=== PATIENT | male | born 1975 | race Caucasian/White ===

== ENCOUNTER 2021-06-07 01:36 | Observation (INO) | payer OTHER, MEDICAID, SELFPAY ==
[2021-06-07] VITALS (12 sets, daily range): BP systolic 97–138; BP diastolic 61–87; PULSE 50–77; RESP 7–22; TEMP 36.1–36.6; O2SAT 95–100; BMI 25.0
--- NOTE | 2021-06-07 01:46 | DI.RAD.S_ITS ---
PROCEDURE: XR CHEST 1V INDICATIONS: chest pain TECHNIQUE: One view of the chest was acquired. COMPARISON: None. FINDINGS: Surgical changes and devices: None. Lungs and pleura: Lungs are clear. No pleural effusions or pneumothorax. Mediastinum: Mediastinal contours appear normal. Heart size is normal. Bones and chest wall: No suspicious bony lesions. Overlying soft tissues appear unremarkable. IMPRESSION: No acute cardiopulmonary disease process. Dictated by: Amie Anderson MD, PhD on 06/07/2021 at 9:02 Approved by: Amie Anderson MD, PhD on 06/07/2021 at 9:02
[2021-06-07 02:06] LABS: Add Manual Diff / Slide Review NO; Basophils Absolute Auto 100 /uL (0-100); Basophils Percent Auto 0.8 % (0-2); Eosinophils Absolute Auto 300 /uL (0-450); Eosinophils Percent Auto 3.8 % (2-4); Hematocrit 44.9 % (41-53); Hemoglobin 14.9 g/dL (13.5-17.5); Lymphocytes Absolute Auto 2500 /uL (1100-4500); Lymphocytes Percent Auto 36.1 % (25-40); Mean Corpuscular HGB Conc 33.2 % (30-36); Mean Corpuscular Hemoglobin 28.9 PG (26-34); Mean Corpuscular Volume 86.8 fL (80-100); Monocytes Absolute Auto 500 /uL (0-900); Monocytes Percent Auto 6.7 % (3-14); Neutrophils Absolute Auto 3700 /uL (1500-7000); Neutrophils Percent Auto 52.6 % (50-75); Platelet Count 179 X10^3/uL (150-400); Red Blood Cell Count 5.17 X10^6/uL (4.5-5.9); Red Cell Distribution Width 13.7 % (11.6-14.8)
[2021-06-07 02:11] LABS: Alanine Aminotransferase 19 IU/L (<50); Albumin 4.4 g/dL (3.5-5.0); Albumin Globulin Ratio 1.5 (1.0-2.8); Alkaline Phosphatase 60 U/L (38-126); Aspartate Aminotransferase 29 IU/L (17-59); BUN Creatinine Ratio 14.3 (6-22); Bilirubin Total 0.4 mg/dL (0.2-1.3); Blood Urea Nitrogen 11 mg/dL (9-20); Calcium 9.5 mg/dL (8.4-10.2); Carbon Dioxide 23 mmol/L (22-32); Chloride 108 mmol/L (98-107); Creatine Kinase 148 U/L (55-170); Estimated Glomerular Filt Rate > 60.0 mL/min (>60); Glucose 132 mg/dL (70-100); HEMOLYSIS 20 (0-50); Lipase 270 U/L (23-300); Potassium 3.6 mmol/L (3.4-5.1); Sodium 141 mmol/L (137-145); Total Protein 7.4 g/dL (6.3-8.2)
--- NOTE | 2021-06-07 02:11 | ED_ITS ---
HPI - Chest Pain <Kannan Harris DO - Last Filed: 06/09/21 07:20> General Chief Complaint: Chest Pain Stated Complaint: Lt arm tingling, chest tight, heart fluttering, SO Time Seen by Provider: 06/07/21 01:40 Source: patient Mode of arrival: Ambulatory Limitations: no limitations History of Present Illness HPI narrative: 45-year-old male former smoker with history of drug abuse presents with a chief complaint of some squeezing chest pressure that started while he was cleaning his house tonight, about 2 hours ago. He states that it seems to be made worse by walking around and improves with rest. He states it is squeezing in nature and radiates into his left arm. He denies dizziness, weakness or light headedness. He denies nausea, vomiting or diarrhea. He denies recent travel but has a remote history of a left basilic DVT Related Data Home Medications Medication Instructions Recorded Confirmed buspirone 30 mg tablet 30 mg PO BID 06/07/21 06/07/21 meloxicam 15 mg tablet 15 mg PO DAILY 06/07/21 06/07/21 oxcarbazepine 300 mg tablet 300 mg PO BID 06/07/21 06/07/21 propranolol 20 mg tablet 40 mg BID 06/07/21 06/07/21 quetiapine 200 mg tablet 200 mg PO BEDTIME 06/07/21 06/07/21 Previous Rx's Medication Instructions Recorded aspirin 81 mg tablet,delayed 81 mg PO DAILY #30 tab 06/07/21 release atorvastatin 20 mg tablet (Lipitor) 40 mg PO BEDTIME #30 tab 06/07/21 nicotine (polacrilex) 4 mg gum 4 mg PO Q2H PRN #90 ea 06/07/21 Allergies Allergy/AdvReac Type Severity Reaction Status Date / Time benztropine [From Cogentin] Allergy Verified 06/07/21 02:47 Review of Systems <DO Simin Geronimo Last Filed: 06/09/21 07:20> Review of Systems Narrative: GENERAL: Denies chills, fatigue, malaise, fever, sweats. HEENT: Denies sinus pain, ear pain, sore throat, difficulty swallowing, dizziness. RESPIRATORY: Denies dyspnea, cough, wheezing, hemoptysis, sputum. CARDIOVASCULAR: See HPI GASTROINTESTINAL: Denies nausea, vomiting, abdominal pain, diarrhea, constipation, melena. : Denies dysuria, frequency, incontinence, hematuria, urinary retention. MUSCULOSKELETAL: denies weakness, joint pain, or bony pain SKIN: Denies rash, skin lesions, or other NEUROLOGIC: Denies weakness, headache, numbness, change in speech, confusion, seizures, incoordination. PSYCHIATRIC: No concerning psychosocial issues. 12 point review of systems is negative except for those stated above Patient History <Kannan Harris DO - Last Filed: 06/09/21 07:20> Social History household members: spouse Smoking Status: Current every day smoker alcohol intake: current Smoking Status: Current every day smoker alcohol intake frequency: 0-2 drinks per day Substance Use Type: does not use Exam <Kannan Harris DO - Last Filed: 06/09/21 07:20> Narrative Exam Narrative: GENERAL: [45] year old patient appears stated age. Well- developed patient, in mild distress. HEAD: Atraumatic. Normocephalic. EYES: Pupils equal round and reactive. Extraocular motions intact. No scleral icterus. No injection or drainage. ENT: Nose without bleeding, purulent drainage. Throat without erythema, ton sillar hypertrophy or exudate. Airway patent. NECK: Trachea midline. Non tender CARDIOVASCULAR: Regular rate and rhythm without murmurs, gallops, or rubs. RESPIRATORY: Clear to auscultation. Breath sounds equal bilaterally. No wheezes, rales, or rhonchi. GASTROINTESTINAL: Abdomen soft, non-tender, nondistended. EXTREMITIES: No edema or joint tenderness. BACK: Nontender without deformity or crepitance. No flank tenderness. NEURO: AOx3. SKIN: No rash or erythema of visible areas Initial Vital Signs Initial Vital Signs: Vital Signs Temperature 97.5 F L 06/07/21 01:46 Pulse Rate 77 06/07/21 01:46 Respiratory Rate 22 06/07/21 01:46 Blood Pressure 125/87 06/07/21 01:46 Pulse Oximetry 98 06/07/21 01:46 <Nedra Aguillon DO - Last Filed: 06/07/21 08:57> Initial Vital Signs Initial Vital Signs: Vital Signs Temperature 97.5 F L 06/07/21 01:46 Pulse Rate 77 06/07/21 01:46 Respiratory Rate 22 06/07/21 01:46 Blood Pressure 125/87 06/07/21 01:46 Pulse Oximetry 98 06/07/21 01:46 Course <Kannan Harris DO - Last Filed: 06/09/21 07:20> Orders Ordered: Discontinued Medications Acetaminophen (Acetaminophen 325 Mg Tablet) 650 mg PO Q6HR PRN PRN Reason: Fever/Mild Pain (1-3) Last Admin: 06/07/21 14:11 Dose: 650 mg Documented by: RAMON Aspirin (Aspirin 81 Mg Chew Tab) 324 mg PO NOW ONE Stop: 06/07/21 01:47 Last Admin: 06/07/21 02:22 Dose: 324 mg Documented by: SHERLYN Aspirin (Aspirin Ec 81 Mg Tablet) 81 mg PO DAILY [facility] Last Admin: 06/07/21 09:39 Dose: 81 mg Documented by: YVONNE Atorvastatin Calcium (Atorvastatin 20 Mg Tablet) 40 mg PO BEDTIME [facility] Enoxaparin Sodium (Enoxaparin 40 Mg/0.4 Ml Syringe) 40 mg SUBCUT DAILY [facility] Last Admin: 06/07/21 09:39 Dose: 40 mg Documented by: YVONNE Sodium Chloride (Normal Saline 0.9%) 1,000 mls @ 150 mls/hr IV CONT [facility] Last Infusion: 06/07/21 05:37 Dose: 0 mls/hr Documented by: Admin: 06/07/21 02:23 Dose: 150 mls/hr Documented by: SHERLYN Naloxone HCl (Naloxone 0.4 Mg/Ml Vial) 0.2 mg IV Q2MIN PRN PRN Reason: Opiate Reversal Nitroglycerin (Nitroglycerin 0.4 Mg Sl Tab) 0.4 mg SL [id number] PRN PRN Reason: Chest Pain Last Admin: 06/07/21 02:23 Dose: 0.4 mg Documented by: ABGOSIA Nitroglycerin (Nitroglycerin 0.4 Mg Sl Tab) 0.4 mg SL [id number] PRN PRN Reason: Chest Pain Ondansetron HCl (Ondansetron 4 Mg/2 Ml Inj) 4 mg IV Q8HR PRN PRN Reason: Nausea And Vomiting Last Admin: 06/07/21 13:51 Dose: 4 mg Documented by: SHAMIKA Sumatriptan Succinate (Sumatriptan 25 Mg Tablet) 100 mg PO Q2H PRN PRN Reason: Headache Last Admin: 06/07/21 15:42 Dose: 100 mg Documented by: LIZ Reevaluation(s) Reevaluation #1: patient feeling much better after 1st NG Vital Signs Vital signs: Vital Signs - 8 hr 06/07/21 01:46 06/07/21 02:23 06/07/21 02:30 Temperature 97.5 F L Pulse Rate 77 68 72 Respiratory Rate 22 16 16 Blood Pressure 125/87 110/77 97/61 Pulse Oximetry 98 06/07/21 02:33 06/07/21 02:35 06/07/21 04:03 Temperature Pulse Rate 68 69 66 Respiratory Rate 20 13 Blood Pressure 106/66 Pulse Oximetry 96 96 100 06/07/21 04:04 06/07/21 04:15 Temperature Pulse Rate 59 L 54 L Respiratory Rate 7 L 16 Blood Pressure 107/73 97/70 Pulse Oximetry 100 98 <Nedra Aguillon, - Last Filed: 06/07/21 08:57> Orders Ordered: Discontinued Medications Acetaminophen (Acetaminophen 325 Mg Tablet) 650 mg PO Q6HR PRN PRN Reason: Fever/Mild Pain (1-3) Last Admin: 06/07/21 14:11 Dose: 650 mg Documented by: RAMON Aspirin (Aspirin 81 Mg Chew Tab) 324 mg PO NOW ONE Stop: 06/07/21 01:47 Last Admin: 06/07/21 02:22 Dose: 324 mg Documented by: SHERLYN Aspirin (Aspirin Ec 81 Mg Tablet) 81 mg PO DAILY [facility] Last Admin: 06/07/21 09:39 Dose: 81 mg Documented by: YVONNE Atorvastatin Calcium (Atorvastatin 20 Mg Tablet) 40 mg PO BEDTIME [facility] Enoxaparin Sodium (Enoxaparin 40 Mg/0.4 Ml Syringe) 40 mg SUBCUT DAILY [facility] Last Admin: 06/07/21 09:39 Dose: 40 mg Documented by: YVONNE Sodium Chloride (Normal Saline 0.9%) 1,000 mls @ 150 mls/hr IV CONT [facility] Last Infusion: 06/07/21 05:37 Dose: 0 mls/hr Documented by: Admin: 06/07/21 02:23 Dose: 150 mls/hr Documented by: [email or web address] Naloxone HCl (Naloxone 0.4 Mg/Ml Vial) 0.2 mg IV Q2MIN PRN PRN Reason: Opiate Reversal Nitroglycerin (Nitroglycerin 0.4 Mg Sl Tab) 0.4 mg SL [id number] PRN PRN Reason: Chest Pain Last Admin: 06/07/21 02:23 Dose: 0.4 mg Documented by: CTR.[email or web address] Nitroglycerin (Nitroglycerin 0.4 Mg Sl Tab) 0.4 mg SL [id number] PRN PRN Reason: Chest Pain Ondansetron HCl (Ondansetron 4 Mg/2 Ml Inj) 4 mg IV Q8HR PRN PRN Reason: Nausea And Vomiting Last Admin: 06/07/21 13:51 Dose: 4 mg Documented by: SHAMIKA Sumatriptan Succinate (Sumatriptan 25 Mg Tablet) 100 mg PO Q2H PRN PRN Reason: Headache Last Admin: 06/07/21 15:42 Dose: 100 mg Documented by: LIZ Reevaluation(s) Reevaluation #2: This is a 45-year-old male who was signed out to myself by Dr. Harris for exertional chest pain with radiation to the left arm patient also felt nausea and shortness of breath. Patient was seen and evaluated independently by myself. Patient is currently asymptomatic. His risk factors include tobacco abuse and history of IV drug abuse in patient states he has been clean without any use for about a year. He does not have any other known sign ificant risk factors such as hypertension, diabetes or dyslipidemia according the patient and family history includes grandfather on the maternal side who of CHF but no other known cardiac risk factors. Patient EKG was reviewed. Troponin 1 and 2 are negative. The patient's symptoms do seem appropriate to warrant observation and stress testing and patient is still agreeable. Time: 07:28 Consultations Consultation #1: Dr. Armando, for hospitalist service accepts. Vital Signs Vital signs: Vital Signs - 8 hr 06/07/21 01:46 06/07/21 02:23 06/07/21 02:30 Temperature 97.5 F L Pulse Rate 77 68 72 Respiratory Rate 22 16 16 Blood Pressure 125/87 110/77 97/61 Pulse Oximetry 98 06/07/21 02:33 06/07/21 02:35 06/07/21 04:03 Temperature Pulse Rate 68 69 66 Respiratory Rate 20 13 Blood Pressure 106/66 Pulse Oximetry 96 96 100 06/07/21 04:04 06/07/21 04:15 Temperature Pulse Rate 59 L 54 L Respiratory Rate 7 L 16 Blood Pressure 107/73 97/70 Pulse Oximetry 100 98 MDM - Chest Pain <Kannan Harris DO - Last Filed: 06/09/21 07:20> Lab Data Result diagrams: 06/07/21 01:50 06/07/21 01:50 Labs: Lab Results 06/07/21 06/07/21 06/07/21 Range/Units 01:50 01:50 01:50 WBC 7.0 (4.5-11.0) X10^3/uL RBC 5.17 (4.5-5.9) X10^6/uL Hgb 14.9 (13.5-17.5) g/dL Hct 44.9 (41-53) % MCV 86.8 (80-100) fL MCH 28.9 (26-34) PG MCHC 33.2 (30-36) % RDW 13.7 (11.6-14.8) % Plt Count 179 (150-400) X10^3/uL Neut % (Auto) 52.6 (50-75) % Lymph % (Auto) 36.1 (25-40) % [place] % (Auto) 6.7 (3-14) % Eos % (Auto) 3.8 (2-4) % Baso % (Auto) 0.8 (0-2) % Neut # (Auto) 3700 (9311-4241) /uL Lymph # (Auto) 2500 (5748-6696) /uL [place] # (Auto) 500 (0-900) /uL Eos # (Auto) 300 (0-450) /uL Baso # (Auto) 100 (0-100) /uL D-Dimer 1050 H (<230) ng/mL Sodium 141 (137-145) mmol/L Potassium 3.6 (3.4-5.1) mmol/L Chloride 108 H (98-107) mmol/L Carbon Dioxide 23 (22-32) mmol/L BUN 11 (9-20) mg/dL Creatinine 0.77 (0.66-1.25) mg/dL Estimated GFR > 60.0 (>60) mL/min BUN/Creatinine Ratio 14.3 (6-22) Glucose 132 H (70-100) mg/dL Calcium 9.5 (8.4-10.2) mg/dL Total Bilirubin 0.4 (0.2-1.3) mg/dL AST 29 (17-59) IU/L ALT 19 (<50) IU/L Alkaline Phosphatase 60 (38-126) U/L Total Creatine Kinase 148 (55-170) U/L CK-MB (CK-2) 0.61 (<2.37) ng/mL CK-MB (CK-2) Rel Index 0.4 L (1.5-5.0) % Troponin I < 0.012 (0.01-0.034) ng/mL NT-Pro-B Natriuret Pep 54 (<125) pg/mL Total Protein 7.4 (6.3-8.2) g/dL Albumin 4.4 (3.5-5.0) g/dL Globulin 3.0 (1.7-4.1) g/dL Albumin/Globulin Ratio 1.5 (1.0-2.8) Lipase 270 (23-300) U/L SARS-CoV-2 (PCR) (Negative) 06/07/21 06/07/21 Range/Units 02:30 06:45 WBC (4.5-11.0) X10^3/uL RBC (4.5-5.9) X10^6/uL Hgb (13.5-17.5) g/dL Hct (41-53) % MCV (80-100) fL MCH (26-34) PG MCHC (30-36) % RDW (11.6-14.8) % Plt Count (150-400) X10^3/uL Neut % (Auto) (50-75) % Lymph % (Auto) (25-40) % [place] % (Auto) (3-14) % Eos % (Auto) (2-4) % Baso % (Auto) (0-2) % Neut # (Auto) (1369-7758) /uL Lymph # (Auto) (7877-1725) /uL [place] # (Auto) (0-900) /uL Eos # (Auto) (0-450) /uL Baso # (Auto) (0-100) /uL D-Dimer (<230) ng/mL Sodium (137-145) mmol/L Potassium (3.4-5.1) mmol/L Chloride (98-107) mmol/L Carbon Dioxide (22-32) mmol/L BUN (9-20) mg/dL Creatinine (0.66-1.25) mg/dL Estimated GFR (>60) mL/min BUN/Creatinine Ratio (6-22) Glucose (70-100) mg/dL Calcium (8.4-10.2) mg/dL Total Bilirubin (0.2-1.3) mg/dL AST (17-59) IU/L ALT (<50) IU/L Alkaline Phosphatase (38-126) U/L Total Creatine Kinase (55-170) U/L CK-MB (CK-2) (<2.37) ng/mL CK-MB (CK-2) Rel Index (1.5-5.0) % Troponin I < 0.012 (0.01-0.034) ng/mL NT-Pro-B Natriuret Pep (<125) pg/mL Total Protein (6.3-8.2) g/dL Albumin (3.5-5.0) g/dL Globulin (1.7-4.1) g/dL Albumin/Globulin Ratio (1.0-2.8) Lipase (23-300) U/L SARS-CoV-2 (PCR) Negative (Negative) Imaging Data CT scan - chest: Radiologist's Impression: No PE <Nedra Aguillon, - Last Filed: 06/07/21 08:57> Lab Data Labs: Lab Results 06/07/21 06/07/21 06/07/21 Range/Units 01:50 01:50 01:50 WBC 7.0 (4.5-11.0) X10^3/uL RBC 5.17 (4.5-5.9) X10^6/uL Hgb 14.9 (13.5-17.5) g/dL Hct 44.9 (41-53) % MCV 86.8 (80-100) fL MCH 28.9 (26-34) PG MCHC 33.2 (30-36) % RDW 13.7 (11.6-14.8) % Plt Count 179 (150-400) X10^3/uL Neut % (Auto) 52.6 (50-75) % Lymph % (Auto) 36.1 (25-40) % [place] % (Auto) 6.7 (3-14) % Eos % (Auto) 3.8 (2-4) % Baso % (Auto) 0.8 (0-2) % Neut # (Auto) 3700 (2681-7085) /uL Lymph # (Auto) 2500 (7005-7768) /uL [place] # (Auto) 500 (0-900) /uL Eos # (Auto) 300 (0-450) /uL Baso # (Auto) 100 (0-100) /uL D-Dimer 1050 H (<230) ng/mL Sodium 141 (137-145) mmol/L Potassium 3.6 (3.4-5.1) mmol/L Chloride 108 H (98-107) mmol/L Carbon Dioxide 23 (22-32) mmol/L BUN 11 (9-20) mg/dL Creatinine 0.77 (0.66-1.25) mg/dL Estimated GFR > 60.0 (>60) mL/min BUN/Creatinine Ratio 14.3 (6-22) Glucose 132 H (70-100) mg/dL Calcium 9.5 (8.4-10.2) mg/dL Total Bilirubin 0.4 (0.2-1.3) mg/dL AST 29 (17-59) IU/L ALT 19 (<50) IU/L Alkaline Phosphatase 60 (38-126) U/L Total Creatine Kinase 148 (55-170) U/L CK-MB (CK-2) 0.61 (<2.37) ng/mL CK-MB (CK-2) Rel Index 0.4 L (1.5-5.0) % Troponin I < 0.012 (0.01-0.034) ng/mL NT-Pro-B Natriuret Pep 54 (<125) pg/mL Total Protein 7.4 (6.3-8.2) g/dL Albumin 4.4 (3.5-5.0) g/dL Globulin 3.0 (1.7-4.1) g/dL Albumin/Globulin Ratio 1.5 (1.0-2.8) Lipase 270 (23-300) U/L SARS-CoV-2 (PCR) (Negative) 06/07/21 06/07/21 Range/Units 02:30 06:45 WBC (4.5-11.0) X10^3/uL RBC (4.5-5.9) X10^6/uL Hgb (13.5-17.5) g/dL Hct (41-53) % MCV (80-100) fL MCH (26-34) PG MCHC (30-36) % RDW (11.6-14.8) % Plt Count (150-400) X10^3/uL Neut % (Auto) (50-75) % Lymph % (Auto) (25-40) % [place] % (Auto) (3-14) % Eos % (Auto) (2-4) % Baso % (Auto) (0-2) % Neut # (Auto) (6222-8864) /uL Lymph # (Auto) (6289-4507) /uL [place] # (Auto) (0-900) /uL Eos # (Auto) (0-450) /uL Baso # (Auto) (0-100) /uL D-Dimer (<230) ng/mL Sodium (137-145) mmol/L Potassium (3.4-5.1) mmol/L Chloride (98-107) mmol/L Carbon Dioxide (22-32) mmol/L BUN (9-20) mg/dL Creatinine (0.66-1.25) mg/dL Estimated GFR (>60) mL/min BUN/Creatinine Ratio (6-22) Glucose (70-100) mg/dL Calcium (8.4-10.2) mg/dL Total Bilirubin (0.2-1.3) mg/dL AST (17-59) IU/L ALT (<50) IU/L Alkaline Phosphatase (38-126) U/L Total Creatine Kinase (55-170) U/L CK-MB (CK-2) (<2.37) ng/mL CK-MB (CK-2) Rel Index (1.5-5.0) % Troponin I < 0.012 (0.01-0.034) ng/mL NT-Pro-B Natriuret Pep (<125) pg/mL Total Protein (6.3-8.2) g/dL Albumin (3.5-5.0) g/dL Globulin (1.7-4.1) g/dL Albumin/Globulin Ratio (1.0-2.8) Lipase (23-300) U/L SARS-CoV-2 (PCR) Negative (Negative) ECG Data Attestation: I personally reviewed and interpreted this ECG as follows: Prior ECG tracings: available for review Interpretation: NSR, no st changes appreciated. Discharge Plan Departure Patient Disposition: Admitted as Observation Clinical Impression: Chest pain Admit Date/Time: 06/07/21 07:32 Admit Provider: Matt Phillips
[2021-06-07 02:12] LABS: D Dimer 1050 ng/mL (<230)
[2021-06-07] MEDS: ASPIRIN 81 MG CHEW TAB 324 MG PO (02:22)
[2021-06-07 02:23] LABS: NT-proBNP (BNP-Adult 18+) 54 pg/mL (<125); Troponin I < 0.012 ng/mL (0.01-0.034)
[2021-06-07] MEDS: NITROGLYCERIN 0.4 MG SL TAB SL (02:23)
[2021-06-07] MEDS: SODIUM CHLORIDE 0.9% 1,000 ML 150 ML IV (02:23)
[2021-06-07 02:26] LABS: CKMB % Relative Index 0.4 % (1.5-5.0); Creatine Kinase MB 0.61 ng/mL (<2.37)
--- NOTE | 2021-06-07 02:39 | PC.NURSE ---
Pt sts he feels better I can breathe now after 1 nitro.
--- NOTE | 2021-06-07 02:44 | DI.CT.S_ITS ---
PROCEDURE: CT ANGIO CHEST PE PROTOCOL INDICATIONS: chest pain, critical D-Dimer TECHNIQUE: After the administration of intravenous contrast, 2 mm thick sections acquired from the pulmonary apices to the posterior costophrenic angles. 3-dimensional maximum intensity projection (MIP) coronal and sagittal reformats were then acquired through the thorax. For radiation dose reduction, the following was used: automated exposure control, adjustment of mA and/or kV according to patient size. COMPARISON: None. FINDINGS: Image quality: Excellent. Pulmonary arteries: Pulmonary arteries are normal in size, and demonstrate no intraluminal filling defects to suggest central pulmonary embolism. Lungs and pleura: Lungs are clear. Small 2-3 millimeter calcified granuloma is noted in the right middle lobe, left lower lobe and left upper lobe. No pleural effusions or pneumothorax. Central and peripheral airways are patent. Mediastinum: Heart size is normal, without pericardial effusion. No mediastinal or hilar adenopathy. Thoracic aorta is normal in caliber and enhancement. Esophagus is normal in caliber, without hiatal hernia. Bones and chest wall: No suspicious bony lesions. Ribs and thoracic spine appear intact throughout. Thyroid gland contains an 8 millimeter hypoattenuating nodule in the right lobe. No axillary or supraclavicular adenopathy. Abdomen: Visualized upper abdominal solid organs appear normal in the early arterial phase of enhancement. IMPRESSION: 1. No pulmonary embolus. 2. No lung consolidation or pleural effusions. 3. Small 2-3 millimeter bilateral lung calcified granulomas. Dictated by: Amie Anderson MD, PhD on 06/07/2021 at 7:04 Approved by: Amie Anderson MD, PhD on 06/07/2021 at 7:08
[2021-06-07 03:25] LABS: COVID19 - ADMIT (NP swab/PCR) Negative (Negative)
[2021-06-07 07:14] LABS: Troponin I < 0.012 ng/mL (0.01-0.034)
--- NOTE | 2021-06-07 07:26 | PC.NURSE ---
Report called to Remy JACKSON
--- NOTE | 2021-06-07 07:42 | DI.NM.S_ITS ---
PROCEDURE: NM EDDIE PERF SPECT R&S PHARM Rest and pharmacological stress myocardial perfusion SPECT with gated imaging and ejection fraction RADIOPHARMACEUTICAL: 11.3 mCi Tc-99m tetrafosmin IV at rest and 25.9 mCi Tc-99m tetrafosmin IV at peak effect of pharmacological stress. [id number] was performed. INDICATIONS: chest pain TECHNIQUE: Radiopharmaceutical was injected at peak stress test, and also at rest. SPECT images were obtained. SPECT myocardial perfusion images were displayed in short axis, horizontal long axis, and vertical long axis views. Gated images were reviewed using POKKT software. COMPARISON: None. CARDIAC STRESS: A pharmacologic stress test was performed under the supervision of an attending staff, using an infusion of lexiscan 0.4mg IV X1. Hemodynamic data: There is normal blood pressure and heart rate response to pharmacologic stress. Symptoms: The patient had non-diagnostic chest pain throughout the study that worsened mildly with lexiscan. Aminophylline: none EKG: No diagnostic changes of ischemia; no ectopy. FINDINGS: Raw data: There is good myocardial uptake of radiotracer. No significant motion artifacts. [id number] ratio is 0.24 (normal is less than 0.38 for tetrafosmin tracer). Left ventricle function: Gated images demonstrate normal left ventricular wall thickening. No segmental wall motion abnormalities. No transient ischemic dilation; TID is 1.23 (normal less than 1.3). Left ventricle resting end diastolic volume is 110 mL. Left ventricle stress ejection fraction is 62%; normal range is above 45%. Myocardial perfusion: There is a very mildly intense fixed inferior wall defect that doesn't improve with prone imaging, suggesting probable old non-transmural infarction. No ischemia. SSS 1. IMPRESSION: Abnormal nuclear stress test consistent with small inferior infarction. No ischemia. 1) There is a very mildly intense fixed inferior wall defect that doesn't improve with prone imaging, suggesting probable old non-transmural infarction. No ischemia. SSS 1. 2) Normal left ventricular size, wall motion, and systolic function (EF post stress 62%). 3) No ECG evidence of ischemia. 4) Non-diagnostic chest pain throughout the study that worsened mildly with lexiscan. 5) No prior nuclear stress test available for comparison. Dictated by: Janna Adhikari MD on 06/07/2021 at 16:33 Approved by: Janna Adhikari MD on 06/07/2021 at 16:37
[2021-06-07] MEDS: ENOXAPARIN 40 MG/0.4 ML SYRINGE SUBCUT (09:39)
[2021-06-07] MEDS: ASPIRIN EC 81 MG TABLET PO (09:39)
[2021-06-07] MEDS: ONDANSETRON 4 MG/2 ML INJ IV (13:51)
[2021-06-07] MEDS: ACETAMINOPHEN 325 MG TABLET 650 MG PO (14:11)
[2021-06-07 14:59] LABS: Troponin I < 0.012 ng/mL (0.01-0.034)
--- NOTE | 2021-06-07 15:25 | PC.NURSE ---
A&Ox4, VSS. Patient complained of headache this afternoon and was given PRN tylenol. Chest pain is consistent but described as improving slightly and more of an ache that goes up to his shoulder then a sharp pain. Call light within reach, bed low.
[2021-06-07] MEDS: SUMAtriptan 25 MG TABLET 100 MG PO (15:42)
--- NOTE | 2021-06-07 17:57 | PC.NURSE ---
Discharge Note Patient A&O, VSS, RA, no complaints of pain or discomfort. Discharge packet reviewed with patient, all questions/concerns addressed. 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 Tele/PIV discontinued. All belongings packed and given to patient. Patient walked down to [facility] by this RN.
--- NOTE | 2021-06-07 20:22 | PM.HP.1 ---
History of Present Illness History of Present Illness Chief complaint: Lt arm tingling, chest tight, heart fluttering, SO Narrative: Mr. Simons is a 45M active smoker >1 pack a day, former drug abuse, PTSD, schizoaffective disorder who presents with chest pain. He notes he has had a lot of stress recently due to some legal/family troubles. He was cleaning his house and noted chest pressure. This was squeezing pressure that radiated to his left arm. He had mild shortness of breath. He has a chronic cough, not worsened. No fevers/chills. He has a stress test years ago. Because of these symptoms he came to the hospital. In the ED, vitals were unremarkable. Labs notable for WBC of 7.0, hgb 14.9, creatinine 0.77. Troponin negative x2. COVID negative. d-dimer 1050. EKG showed no ischemic changes. CTA was done and howed no PE. He was admitted for further treatment, he was given aspirin. Family history: grandfather with CHF Patient History Family & Social History Social History: household members spouse Prior Living Arrangements House Safety & Behavioral: Feels Safe in Current Yes Environment Suicidal Ideation Description None Suicide Plan Description No Plan Tobacco & Substance use: Tobacco type cigarettes,cigars Smoking Status Current every day smoker Smoking packs per day 1 alcohol intake current alcohol intake frequency 0-2 drinks per day Substance Use Type does not use Meds Home Medications and Allergies Home Medications Medication Instructions Recorded Confirmed Type aspirin 81 mg tablet,delayed 81 mg PO DAILY #30 tab 06/07/21 Rx release atorvastatin 20 mg tablet (Lipitor) 40 mg PO BEDTIME #30 tab 06/07/21 Rx buspirone 30 mg tablet 30 mg PO BID 06/07/21 06/07/21 History meloxicam 15 mg tablet 15 mg PO DAILY 06/07/21 06/07/21 History nicotine (polacrilex) 4 mg gum 4 mg PO Q2H PRN #90 ea 06/07/21 Rx oxcarbazepine 300 mg tablet 300 mg PO BID 06/07/21 06/07/21 History propranolol 20 mg tablet 40 mg BID 06/07/21 06/07/21 History quetiapine 200 mg tablet 200 mg PO BEDTIME 06/07/21 06/07/21 History Allergies Allergy/AdvReac Type Severity Reaction Status Date / Time benztropine [From Cogentin] Allergy Verified 06/07/21 02:47 Review of Systems Review of Systems Narrative: 14 systems reviewed and negative aside from what is noted in HPI Exam Vital Signs (past 8 hours): - 06/07/21 13:57 06/07/21 15:00 06/07/21 15:35 Temperature 97.8 F 97.9 F Pulse Rate 50 L 68 Respiratory Rate 16 16 Blood Pressure 116/86 138/77 Pulse Oximetry 100 95 96 Oxygen Delivery Method Room Air Oxygen Flow Rate 0 Narrative Exam Narrative: GEN: no acute distress HEENT: moist mucous membranes, PERRL NECK: no JVD, trachea midline PULM: clear bilaterally, no wheezes, rhonchi, rales CV: regular rate and rhythm with no murmurs ABD: soft, nontender, nondisteded, no organomegaly, normal bowel sounds EXT: warm and well perfused with no edema NEURO: awake alert and oriented x3 PSYCH: anxious, pleasant Objective Labs Result Diagrams: 06/07/21 01:50 06/07/21 01:50 Labs: Laboratory Results - last 24 hr 06/07/21 06/07/21 06/07/21 01:50 01:50 01:50 WBC 7.0 RBC 5.17 Hgb 14.9 Hct 44.9 MCV 86.8 MCH 28.9 MCHC 33.2 RDW 13.7 Plt Count 179 Neut % (Auto) 52.6 Lymph % (Auto) 36.1 [place] % (Auto) 6.7 Eos % (Auto) 3.8 Baso % (Auto) 0.8 Neut # (Auto) 3700 Lymph # (Auto) 2500 [place] # (Auto) 500 Eos # (Auto) 300 Baso # (Auto) 100 D-Dimer 1050 H Sodium 141 Potassium 3.6 Chloride 108 H Carbon Dioxide 23 BUN 11 Creatinine 0.77 Estimated GFR > 60.0 BUN/Creatinine Ratio 14.3 Glucose 132 H Calcium 9.5 Total Bilirubin 0.4 AST 29 ALT 19 Alkaline Phosphatase 60 Total Creatine Kinase 148 CK-MB (CK-2) 0.61 CK-MB (CK-2) Rel Index 0.4 L Troponin I < 0.012 NT-Pro-B Natriuret Pep 54 Total Protein 7.4 Albumin 4.4 Globulin 3.0 Albumin/Globulin Ratio 1.5 Lipase 270 SARS-CoV-2 (PCR) 06/07/21 06/07/21 06/07/21 02:30 06:45 14:30 WBC RBC Hgb Hct MCV MCH MCHC RDW Plt Count Neut % (Auto) Lymph % (Auto) [place] % (Auto) Eos % (Auto) Baso % (Auto) Neut # (Auto) Lymph # (Auto) [place] # (Auto) Eos # (Auto) Baso # (Auto) D-Dimer Sodium Potassium Chloride Carbon Dioxide BUN Creatinine Estimated GFR BUN/Creatinine Ratio Glucose Calcium Total Bilirubin AST ALT Alkaline Phosphatase Total Creatine Kinase CK-MB (CK-2) CK-MB (CK-2) Rel Index Troponin I < 0.012 < 0.012 NT-Pro-B Natriuret Pep Total Protein Albumin Globulin Albumin/Globulin Ratio Lipase SARS-CoV-2 (PCR) Negative Assessment & Plan Assessment & Plan narrative: Mr. Simons is a 45M with PMH of smoking who presents with chest pain. 1. Acute chest pain -troponins negative x2, ekg with no acute ischemic changes -relieved with nitro -aspirin and statin ordered -stress test planned to evaluate for evidence of reversible ischemia -patient under a lot of stress which may be contributing 2. PTSD/schizoaffective disorder -will continue patient's home medications of baspar, oxcarbazepine, quetiapine 3. Essential tremor, chronic -continue propanolol CODE: Full Proxy: Yris Christy, life partner I have utilized all available immediate resources to obtain, update, or review the patient's current medications. Quality MIPS - Admit I confirm the patient?s Advance Care Plan is present, Code status is documented, Surrogate decision maker is in patient?s record [If Yes, STOP here]: Yes
== END 2021-06-07 17:00 | disposition home or self-care (01) ==
LOC: ED 07:30 → AC 07:33
PROVIDERS: Admitting Provider Internal Medicine; Emergency Provider Emergency Medicine; Referring Provider Emergency Medicine; Visit Provider Internal Medicine
DX: R07.9 Chest pain, unspecified (principal); Z86.718 Personal history of other venous thrombosis and embolism; F17.210 Nicotine dependence, cigarettes, uncomplicated; F19.11 Other psychoactive substance abuse, in remission; F43.10 Post-traumatic stress disorder, unspecified; F25.9 Schizoaffective disorder, unspecified; G25.0 Essential tremor; Z20.822 Contact with and (suspected) exposure to COVID-19
CPT/HCPCS: 36415; 71045; 71275; 78452; 80053; 82550; 82553; 83690; 83880; 84484; 85025; 85379; 87635; 93005; 93017; 96361; 96372; 96374; 99284; C9803; G0378; A9502; J1650; J2405; J2785; Q9967